=== PATIENT | male | born 1940 | race Caucasian/White ===

== ENCOUNTER → 2018-09-25 | Outpatient (REF) | payer MEDICARE, OTHER ==
[~2018-09-25] MED LIST: ACET-2043 PO; ASPI81TA94 PO; IBUP-136 PO; LAN30PT PO
== END ==
LOC: ZZSENDIN 12:00
PROVIDERS: ATTEND Urology
DX: C61 Malignant neoplasm of prostate (principal)
CPT/HCPCS: 88305; 88344

== ENCOUNTER → 2018-10-10 | Outpatient (CLI) | payer MEDICARE, OTHER ==
[~2018-10-10] MED LIST changes: +IOPAMIDOL 76% 100 ML INFUS BTL 100 ML ONE
--- NOTE | 2018-10-10 08:19 | RADIOLOGY IMAGING REPORT ---
FACILITY: [facility] PATIENT NAME: Claus Agosto : 1940 MR: [id number] V: [id number] EXAM DATE: ORDERING PHYSICIAN: NICHELLE GAO TECHNOLOGIST: Location: [facility] Patient: Claus Agosto : 1940 Visit/Account:[id number] Date of Sevice: 10/10/2018 Chest 2 views: HISTORY: Prostate cancer COMPARISON: None FINDINGS: Frontal and lateral chest: Cardiomediastinal silhouette is within normal limits. There is n o infiltrate or pleural effusion. No pneumothorax. Pulmonary vasculature is normal. Degenerative changes are present in the thoracic spine. No obvious lytic or blastic lesions are ident ified. IMPRESSION: No evidence of acute cardiopulmonary abnormality. Report Dictated By: Brooke Sheikh MD at 10/10/2018 8:09 AM Report E-Signed By: Brooke Sheikh MD at 10/10/2018 8:11 AM WSN:[id number]
--- NOTE | 2018-10-10 14:12 | RADIOLOGY IMAGING REPORT ---
FACILITY: [facility] PATIENT NAME: Claus Agosto : 1940 MR: [id number] V: [id number] EXAM DATE: ORDERING PHYSICIAN: NICHELLE GAO TECHNOLOGIST: Location: [facility] Patient: Claus Agosto : 1940 Visit/Account:[id number] Date of Sevice: 10/10/2018 NM BONE SCAN COMPLETE Indication: Prostate cancer Comparison: None Findings: A whole-body bone scan was performed with 8 mCi 99mTc-MDP. Focal abnormal radiotracer uptake is seen in a linear distribution along the anterior right ribs, ri bs numbers 3, 4, 5, 6, and 7. The cervical thoracic and lumbar spine demonstrate normal radiotracer activity. Bones of the pelvis and the right and left lower extremities are normal. Calvarium and th e upper extremities are normal. IMPRESSION: 1. Multiple foci of abnormal radiotracer uptake anterior right ribs. This is in a distribution most consistent with rib fractures. 2. Otherwise normal whole body bone scan. A chest x-ray 10/10/2018 does not demonstrate obvious fractures in the ribs. Recommend a noncontrast chest CT to evaluate if there are right-sided rib fractures versus sclerotic lesions which would then favor metastasis. Report Dictated By: Luis Cardona at 10/10/2018 1:54 PM Report E-Signed By: Luis Cardona at 10/10/2018 2:04 PM WSN:[id number]
--- NOTE | 2018-10-10 16:11 | RADIOLOGY IMAGING REPORT ---
FACILITY: [facility] [place] PATIENT NAME: Claus Agosto : 1940 MR: [id number] V: [id number] EXAM DATE: ORDERING PHYSICIAN: NICHELLE GAO TECHNOLOGIST: Location: [facility] [place] Patient: Claus Agosto : 1940 Visit/Account:[id number] Date of Sevice: 10/10/2018 EXAMINATION: CT Abdomen W/O Contrast CT Abdomen W/ Contrast CT Pelvis W/O Contrast CT Pelvis W/ Contrast 10/10/2018 9:00 AM HISTORY: Prostate cancer TECHNIQUE: Spiral scans were obtained through the abdomen and pelvis before and during injection of nonionic iodinated intravenous contrast. Contrast: 75 mL of IV Isovue 370. One of the following dose optimization techniques was utilized in the performance of this exam: Autom ated exposure control; adjustment of the mA and/or kV according to the patient's size; or use of an i terative reconstruction technique. Specific details can be referenced in the facility's radiology C T exam operational policy. COMPARISON STUDIES: Bone scan today. FINDINGS: Liver / biliary: Cholecystolithiasis. No focal liver lesion. Pancreas: negative Spleen: Incidental small inferomedial accessory splenule. Adrenal glands: negative Kidneys / retroperitoneum: Small anterior cortical cyst on the left with additional tiny hypoenhancin g cortical focus above this which is also presumably benign. Pelvic structures: Prostate 5.2 x 4.4 x 3.9 cm. There is mild asymmetric fullness of the left late ral contour but no well-defined discrete prostate mass. Seminal vesicles are not enlarged. Bladder is unremarkable. Bowel / peritoneum / mesenteries: Diverticulosis of the colon. No bowel mass or obstruction. Normal a ppendix. No omental/peritoneal nodularity or ascites. Predominantly fatty hiatal hernia. Vessels: Atherosclerosis. Incidental circumaortic left renal vein with a small retroaortic component. Musculoskeletal / Body wall: Small sclerotic focus in the proximal left femur is likely a bone island . Degenerative changes in the spine. Tiny fatty umbilical hernia. Bilateral fatty inguinal hernias. Lymph node assessment: negative Lower chest: negative IMPRESSION: 1. Mild asymmetric fullness of the left prostate contour without well-defined prostate mass. 2. No metastatic disease demonstrated in the abdomen or pelvis. Report Dictated By: Luis Auguste MD at 10/10/2018 3:53 PM Report E-Signed By: Luis Auguste MD at 10/10/2018 4:01 PM WSN:[id number]
== END ==
LOC: NUC 01:04
PROVIDERS: ATTEND Urology
DX: C61 Malignant neoplasm of prostate (principal)
CPT/HCPCS: 71046; 74178; 78306; A9503; Q9967